=== PATIENT | male | born 1930 | race Caucasian/White ===

== ENCOUNTER → 2016-06-13 | Outpatient (CLI) | payer OTHER | LOC: CIMAGING 13:18 | PROVIDERS: ATTEND Physician Assistant | DX: R39.15 Urgency of urination (principal); N20.0 Calculus of kidney; Z85.46 Personal history of malignant neoplasm of prostate | CPT/HCPCS: 74176-PO ==

== ENCOUNTER 2016-07-02 15:14 | Emergency (ER) | payer OTHER ==
[2016-07-02 15:52] LABS: COLOR YELLOW; LEUKOCYTE ESTERASE,URINE TRACE (NEGATIVE); NITRITE,URINE NEGATIVE (NEGATIVE); PH,URINE 7.5 (5.0-7.5)
--- NOTE | 2016-07-02 15:56 | EDPHY ---
H & P Time Seen by Provider: 07/02/16 15:22 HPI/ROS: HPI Urethral pain, bladder pain. 86-year-old male by private vehicle. This patient had a cystoscopy this last by urologist Dr. Moss. He reports that since this time he has had a burning sensation in his urethra which is much worse when he urinates. He is incontinent. He does have a clamp that he uses over his penis to hold his urine. He reports that when he releases the clamp and urine flows the burning sensation is much more intense. He reports that it feels as if it radiates back into his bladder. He has not had a fever. No nausea or vomiting. No back pain. He has a complicated past medical history. Please see below. He has chronic phimosis. His urologist is currently prescribing a steroid and antibiotic ointment for this. He denies any acute worsening of this condition. ROS: Constitutional: No fever, no chills. No weakness. Eyes: No discharge. No changes in vision. ENT: No sore throat. No nasal congestion or rhinorrhea. Respiratory: No cough. No shortness of breath. Cardiac: No chest pain, no palpitations. Gastrointestinal: No abdominal pain, no vomiting, no diarrhea. Genitourinary: No hematuria. No dysuria or increased frequency with urination. Musculoskeletal: No back pain. No neck pain. No myalgias or arthralgias. Skin: No rashes. Neurological: No headache. No focal weakness or altered sensation. Past medical history: As above. Anal proctectomy, ileostomy bag, renal failure with dialysis Wednesdays and Fridays, restless leg syndrome, appendectomy. Social history: Here by himself. Nonsmoker. Physical Exam: General Appearance: Alert, no distress. This patient is responding to questions appropriately and in full sentences. This patient appears well- hydrated and well-nourished. Eyes: Pupils equal and round no pallor or injection. No lid edema, erythema or injection. Genitourinary: Chronic phimosis noted. There is some mild inflammation of the foreskin surrounding the glans. There is an appointment over this. No penile lesions. No purulent discharge. Gastrointestinal: Ileostomy, right mid abdomen intact, abdomen is soft and nontender, no masses, bowel sounds are present. No focal tenderness at McBurney 's point. No Reyes sign. Neurological: Motor sensory function is grossly intact. Cranial nerves are normal. Gait is normal. Skin: Warm and dry, no rashes. Musculoskeletal: No CVA tenderness on palpation. Extremities are symmetrical. All joints range without pain or impingement. Psychiatric: No agitation. No depression. Database: EKG: Imaging: Procedures: Emergency department course: Urine specimen obtained. Vital signs reviewed and are normal. Patient is afebrile. Patient's presentation is likely secondary to inflammation from the cystoscopy procedure itself. Will evaluate for infection and place the patient on antibiotics if needed. 4:20 p.m., patient re-evaluated. Results of urinalysis discussed with him. Urinalysis indicates probable infectious process. Plan will be to start the patient on cefuroxime, 500 mg twice daily for 7 days. He is to follow up with his urologist on Sunday for re-evaluation. It can be determined then if antibiotic should be continued. I did culture his urine and his culture results should be back by that time as well. Return to the emergency department precautions were discussed with him. He feels comfortable going home. All of his questions were answered. He understands his follow-up and treatment plan. He was discharged in good condition. Differential Diagnosis: The differential diagnosis on this patient includes but is not limited to urinary tract infection, cystitis, urethral inflammation status post cystoscopy . This represents a partial list of diagnoses considered. These considerations are based on history, physical exam, past history, reassessment and diagnostic testing. Smoking Status: Never smoked Constitutional: Initial Vital Signs Temperature (C) 36.6 C 07/02/16 15:24 Heart Rate 64 07/02/16 15:24 Respiratory Rate 16 07/02/16 15:24 Blood Pressure 108/45 L 07/02/16 15:24 O2 Sat (%) 98 07/02/16 15:24 O2 Delivery Mode Nasal Cannula O2 (L/minute) 2 Allergies/Adverse Reactions: ciprofloxacin [From Cipro] Allergy (Intermediate, Verified 07/02/16 15:28) HIGH CREATININE Penicillins Allergy (Intermediate, Verified 07/02/16 15:28) SWELLING SOLES OF FEET Home Medications: Medication Instructions Recorded Cholecalciferol Vit D3 [Vitamin D3 1,000 units PO DAILY 01/15/12 (*)] Finasteride [Proscar 5 MG (RX)] 5 mg PO 01/15/12 Flutamide 250 mg PO ,,01/15/12 Gabapentin [Neurontin 400 MG (RX)] 400 mg PO MWF@11 01/15/12 [place]-3 Fatty Acids [Fish Oil 1000 1,000 mg PO DAILY 01/15/12 mg (*)] Vitamin B Complex [Vitamin B 1 each PO DAILY 01/15/12 Complex (OTC)] rOPINIRole HCL [Requip 1mg (*)] 1 mg PO 0300 01/15/12 rOPINIRole HCL [Requip 1mg (*)] 1.5 mg PO HS 01/15/12 Buprenorphine [Butrans 20 mcg/hr] 1 each TD WE 12/17/14 Gabapentin [Neurontin] 300 mg PO HS 12/17/14 Herbals/Supplements -Info Only 1 ea PO DAILY 12/17/14 Tamsulosin HCl 0.4 mg PO DAILY@19 12/17/14 Tamsulosin HCl 0.4 mg PO HS 12/17/14 Teriparatide [Forteo] 20 mcg SC 2200 12/17/14 Vit A/Vit C/Vit E/Zinc/Copper 1 each PO BID 12/17/14 [Preservision Areds Softgel] Cefuroxime Axetil [Cefuroxime] 500 mg PO BID #14 tablet 07/02/16 Medical Decision Making - Data Points Laboratory Results: 07/02/16 15:40 Urine Color YELLOW Urine Appearance HAZY Urine pH 7.5 (5.0-7.5) Ur Specific [place] 1.020 (1.002-1.030) Urine Protein 3+ H (NEGATIVE) Urine Ketones TRACE H (NEGATIVE) Urine Blood 3+ H (NEGATIVE) Urine Nitrate NEGATIVE (NEGATIVE) Urine Bilirubin NEGATIVE (NEGATIVE) Urine Urobilinogen 0.2 EU EU (0.2-1.0) Ur Leukocyte Esterase TRACE H (NEGATIVE) Urine RBC 50-182 /hpf H /hpf (0-3) Urine WBC 5-10 /hpf H /hpf (0-3) Ur Epithelial Cells TRACE /lpf /lpf (NONE-1+) Urine Bacteria 1+ /hpf H /hpf (NONE SEEN) Urine Glucose TRACE H (NEGATIVE) Departure - Departure Disposition: Home, Routine, Self-Care Clinical Impression: Urethritis, Status post cystoscopy, Probable urinary tract infection Condition: Good Instructions: Nonspecific Urethritis in Men (ED), Urinary Tract Infection in Men (ED) Additional Instructions: Read and follow provided instructions. Follow-up with your urologist on Sunday without fail for re-evaluation. Explained to him that your urine culture results should be available at that time. Urologist can then determine whether not to keep you on the antibiotics I prescribed you or go with a different treatment. Take medication as prescribed only. Return to the emergency department for worsening pain, fever, bleeding or other serious concerns. Referrals: MICHAEL TINOCO [Primary Care Provider] - As per Instructions Prescriptions: Cefuroxime Axetil [Cefuroxime] 500 mg PO BID #14 tablet
[2016-07-02 16:07] LABS: BACTERIA 1+ /hpf (NONE SEEN); RBC,URINE 50-182 /hpf (0-3)
[2016-07-02 16:35] VITALS: BP 111/67; PULSE 68; RESP 18; TEMP 97.7; O2SAT 95
== END 2016-07-02 16:36 | disposition home or self-care (01) ==
LOC: CED 15:14
DX: N34.2 Other urethritis (principal); Z98.890 Other specified postprocedural states
CPT/HCPCS: 81003-PO; 81015-PO

== ENCOUNTER → 2016-08-17 | Outpatient (CLI) | payer OTHER | LOC: CIMAGING 14:12 | DX: H70.92 Unspecified mastoiditis, left ear (principal); H66.92 Otitis media, unspecified, left ear | CPT/HCPCS: 70480-PO ==

== ENCOUNTER 2016-08-30 12:06 | Inpatient (IN) | payer OTHER ==
--- NOTE | 2016-08-30 12:47 | EDPHY ---
H & P Stated Complaint: weak and fever decreased appetite and ambulation since 08/29 Time Seen by Provider: 08/30/16 12:11 HPI/ROS: CHIEF COMPLAINT: Fever at home, generalized weakness, history of end-stage renal disease HISTORY OF PRESENT ILLNESS: The patient presents to the ED after a 1 day history of fever at home. He reportedly had a fever to 100.8 degrees. The patient did have an episode of generalized weakness with the symptoms. The patient has end-stage renal disease. Last dialysis was on Sunday. Dialysis catheter is located in the left upper extremity. The patient has not had a history of fever, cough or vomiting. The patient reports he makes very little urine on a daily basis he estimates less than 25 mL. The patient denies any acute abdominal pain. He denies headache, rash, myalgias or recent medication changes. The patient is unable to walk secondary to his weakness. REVIEW OF SYSTEMS: A comprehensive 10 point review of systems is otherwise negative aside from elements mentioned in the history of present illness. Source: Patient, Family - Personal History Current Tetanus/Diphtheria Vaccine: Unsure Current Tetanus Diphtheria and Acellular Pertussis (TDAP): Unsure Tetanus Vaccine Date: WITHIN 10 YRS - Medical/Surgical History Hx Diabetes: No Hx Renal Disease: Yes Other PMH: Stage 5 Kidney failure. Dialysis MWF. Restless leg syndrome RLS. Prostatectomy. colectomy with illeostomy. Appy - Social History Smoking Status: Never smoked - Physical Exam Exam: General Appearance: Elderly male, no acute distress Eyes: Pupils equal and round no pallor or injection ENT, Mouth: Mucous membranes moist Respiratory: There are no retractions, rales noted on exam Cardiovascular: Regular rate and rhythm Gastrointestinal: Colostomy bag is functioning normally, normal bowel sounds, no abdominal tenderness Neurological: A&O, normal motor function, normal sensory exam, normal cranial nerves Skin: Warm and dry, no rashes Musculoskeletal: Neck is supple nontender Extremities: Dialysis catheter noted in left upper extremity without evidence of cellulitis, erythema or tenderness Constitutional: Initial Vital Signs Temperature (C) 36.7 C 08/30/16 12:15 Heart Rate 67 08/30/16 12:15 Respiratory Rate 20 08/30/16 12:15 Blood Pressure 103/43 L 08/30/16 12:15 O2 Sat (%) 97 08/30/16 12:15 O2 Delivery Mode Nasal Cannula O2 (L/minute) 2 Allergies/Adverse Reactions: ciprofloxacin [From Cipro] Allergy (Intermediate, Verified 08/30/16 12:24) HIGH CREATININE Penicillins Allergy (Intermediate, Verified 08/30/16 12:24) SWELLING SOLES OF FEET Home Medications: Medication Instructions Recorded Cholecalciferol Vit D3 [Vitamin D3 1,000 units PO DAILY 01/15/12 (*)] Finasteride [Proscar 5 MG (RX)] 5 mg PO ,01/15/12 Flutamide 250 mg PO 03,,01/15/12 Gabapentin [Neurontin 400 MG (RX)] 400 mg PO MWF@11 01/15/12 [place]-3 Fatty Acids [Fish Oil 1000 1,000 mg PO DAILY 01/15/12 mg (*)] Vitamin B Complex [Vitamin B 1 each PO DAILY 01/15/12 Complex (OTC)] rOPINIRole HCL [Requip 1mg (*)] 1 mg PO 0300 01/15/12 rOPINIRole HCL [Requip 1mg (*)] 1.5 mg PO HS 01/15/12 Buprenorphine [Butrans 20 mcg/hr] 1 each TD WE 12/17/14 Gabapentin [Neurontin] 300 mg PO HS 12/17/14 Herbals/Supplements -Info Only 1 ea PO DAILY 12/17/14 Tamsulosin HCl 0.4 mg PO DAILY@19 12/17/14 Tamsulosin HCl 0.4 mg PO HS 12/17/14 Teriparatide [Forteo] 20 mcg SC 2200 12/17/14 Vit A/Vit C/Vit E/Zinc/Copper 1 each PO BID 12/17/14 [Preservision Areds Softgel] Cefuroxime Axetil [Cefuroxime] 500 mg PO BID #14 tablet 07/02/16 Medical Decision Making - Diagnostics EKG Interpretation: EKG: Complete interpretation has been separately recorded in the [facility] archive. Summary impression: Sinus rhythm Imaging Results: Imaging Impressions Chest X-Ray 08/30/16 12:31 Impression: 1. Impending CHF versus mild fluid overloading. 2. Malpositioned double lumen venous catheter coursing up the neck. Results discussed with Dr. East. ED Course/Re-evaluation: The patient presents to the ED with fever and weakness for the past day. He has a history of end-stage renal disease. His potassium slightly elevated 5.5. He has no arrhythmia or QRS widening noted on his EKG. Chest x-ray does demonstrate pulmonary venous congestion. The patient was noted to be afebrile in the emergency department. Workup in the emergency department included blood cultures x2 and typical screening laboratories. The patient is unable to produce any urine and is fairly oligouric at baseline. The patient will require admission to the hospital in the setting of his weakness, fever, mild hyperkalemia and clinical dehydration with possible pulmonary venous congestion. Consultation was made with the hospitalist service at 1:40 p.m.. [facility]. I also paged Nephrology at 1:40 p.m. I spoke with the hospitalist at 1:45 p.m.. The patient has been accepted for inpatient hospitalization by Dr. Bah. I spoke with Dr. Jack at 2:00 p.m.. He will make arrangements for the patient to receive in-patient dialysis. Differential Diagnosis: Differential diagnosis considered includes dehydration, hyperkalemia, renal failure, pneumonia, urinary tract infection, bacteremia, sepsis, severe sepsis - Data Points Laboratory Results: Laboratory Results 08/30/16 12:40 08/30/16 12:40 08/30/16 08/30/16 08/30/16 12:40 12:40 12:40 WBC 10.18 10^3/uL H 10^3/uL (3.80-9.50) RBC 2.82 10^6/uL L 10^6/uL (4.40-6.38) Hgb 10.2 g/dL L g/dL (13.7-17.5) Hct 30.6 % L % (40.0-51.0) MCV 108.5 fL H fL (81.5-99.8) MCH 36.2 pg H pg (27.9-34.1) MCHC 33.3 g/dL g/dL (32.4-36.7) RDW 16.0 % H % (11.5-15.2) Plt Count 100 10^3/uL L 10^3/uL (150-400) MPV 10.3 fL fL (8.7-11.7) Neut % (Auto) 88.8 % H % (39.3-74.2) Lymph % (Auto) 4.6 % L % (15.0-45.0) [place] % (Auto) 5.9 % % (4.5-13.0) Eos % (Auto) 0.0 % L % (0.6-7.6) Baso % (Auto) 0.1 % L % (0.3-1.7) Nucleat RBC Rel Count 0.0 % % (0.0-0.2) Absolute Neuts (auto) 9.04 10^3/uL H 10^3/uL (1.70-6.50) Absolute Lymphs (auto) 0.47 10^3/uL L 10^3/uL (1.00-3.00) Absolute Monos (auto) 0.60 10^3/uL 10^3/uL (0.30-0.80) Absolute Eos (auto) 0.00 10^3/uL L 10^3/uL (0.03-0.40) Absolute Basos (auto) 0.01 10^3/uL L 10^3/uL (0.02-0.10) Absolute Nucleated RBC 0.00 10^3/uL 10^3/uL (0-0.01) Immature Gran % 0.6 % % (0.0-1.1) Immature Gran # 0.06 10^3/uL 10^3/uL (0.00-0.10) VBG Lactic Acid 1.2 mmol/L mmol/L (0.7-2.1) Sodium 134 mEq/L mEq/L (134-144) Potassium 5.5 mEq/L H mEq/L (3.5-5.2) Chloride 96 mEq/L L mEq/L (97-110) Carbon Dioxide 23 mEq/l mEq/l (22-31) Anion Gap 15 mEq/L mEq/L (8-16) BUN 62 mg/dL H mg/dL (7-23) Creatinine 6.8 mg/dL H mg/dL (0.7-1.3) Estimated GFR 8 Glucose 139 mg/dL H mg/dL (70-100) Calcium 8.0 mg/dL L mg/dL (8.5-10.4) Departure - Departure Disposition: Home, Routine, Self-Care Clinical Impression: Fever, Weakness, End stage renal disease, Hyperkalemia Condition: Fair Referrals: MICHAEL TINOCO [Primary Care Provider] - As per Instructions
[2016-08-30 12:59] LABS: % IMMATURE GRANULYOCYTES 0.6 % (0.0-1.1); ABSOLUTE IMMATURE GRANULOCYTES 0.06 10^3/uL (0.00-0.10); ADD DIFF? NO; ADD MORPH? NO; ADD SCAN? NO; ATYPICAL LYMPHOCYTE FLAG 0 (0-99); FRAGMENT RBC FLAG 0 (0-99); HEMATOCRIT 30.6 % (40.0-51.0); HEMOGLOBIN 10.2 g/dL (13.7-17.5); LEFT SHIFT FLG 0 (0-99); LIPEMIA HEMOLYSIS FLAG 80 (0-99); MEAN CELL HEMOGLOBIN 36.2 pg (27.9-34.1); MEAN CELL HEMOGLOBIN CONCENTR. 33.3 g/dL (32.4-36.7); MEAN CELL VOLUME 108.5 fL (81.5-99.8); MEAN PLATELET VOLUME 10.3 fL (8.7-11.7); PLATELET CLUMPS FLAG 0 (0-99); PLATELET COUNT 100 10^3/uL (150-400); RED BLOOD CELL COUNT 2.82 10^6/uL (4.40-6.38)
[2016-08-30 13:13] LABS: CREATININE 6.8 mg/dL (0.7-1.3); POTASSIUM 5.5 mEq/L (3.5-5.2)
--- NOTE | 2016-08-30 13:34 | CPEKG ---
Heart Rate: 68 RR Interval: 882 P-R Interval: 168 QRSD Interval: 82 QT Interval: 364 QTC Interval: 388 P [place]: 54 QRS [place]: 7 T Wave [place]: 15 EKG Severity - OTHERWISE NORMAL ECG - EKG Impression: SINUS RHYTHM EKG Impression: LOW VOLTAGE IN FRONTAL LEADS Electronically Signed By: Daniel East 30-Aug-2016 13:57:08
--- NOTE | 2016-08-30 15:31 | WOCRNPDOC ---
WOCRN Advanced Assessment Note - Skin Integrity Problem, Advanced Assess Bilateral Buttock Dressing Type: Open to Air Skin Integrity Problem Comment: Blanching erythema with mild moisture associated dermatitis. No need for wound care. Offload per prevention of pressure injury policy. Wound care will sign off.
[2016-08-30] MEDS ORDERED: ONDANSETRON DISINTEGRATING 4 MG TAB PO PRN (15:37)
[2016-08-30] MEDS ORDERED: NITROGLYCERIN 0.4 MG BTL SL PRN (16:18)
--- NOTE | 2016-08-30 16:46 | GHP ---
[f rep st] HISTORY AND PHYSICAL DATE OF ADMISSION: 08/30/2016 CHIEF COMPLAINT: Weakness, fever. HISTORY OF PRESENT ILLNESS: An 86-year-old male with a history of end-stage renal disease, on dialysis, CAD, ulcerative colitis, and a history of prostate cancer, presented to [facility] with a fever to 100.8 and generalized weakness. This started yesterday. He said he has been so weak in the legs for the last 2 days that he has not really been able to ambulate. Complaining of pain in his hips. He is very tired and has complained of chills. No nausea, vomiting. No increased stool in his colostomy. Denies flank pain. He makes a small amount of urine still. Intermittent headache, but none recently. No rash. Last dialysis was on Sunday. The patient has had decreased p.o. intake over the last couple days. REVIEW OF SYSTEMS: I completed a 10-point review of systems, negative, except as noted in HPI. PAST MEDICAL HISTORY: 1. Restless legs syndrome. 2. End-stage renal disease, on dialysis Sunday, Sunday, Sunday. 3. Ulcerative colitis, status post proctocolectomy with end ileostomy. 4. Osteoporosis. 5. Kidney stones. 6. Recurrent UTIs. History of Proteus and E coli. 7. Ureter stricture, followed by [facility]. History of UTIs. 8. Prostate cancer, status post radical prostatectomy. 9. Macular degeneration. 10. Chronic hypoxemic respiratory failure, on 2 L: Patient is followed by Dr. Tracy with relatively normal PFTs. Suspect multifactorial due to age, deconditioning and severe kyphosis. 11. Phimosis seen recently by Urology. Plan for dorsal slit. 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 PAST SURGICAL HISTORY: Proctocolectomy with end ileostomy, colectomy; kyphoplasty, T2014; cholecystectomy. FAMILY HISTORY: Brother with diabetes. SOCIAL HISTORY: He lives with his in [place]. They have been 64 years. Denies alcohol, tobacco or illicits. ALLERGIES: Cipro, penicillins. HOME MEDICATIONS: Requip 1.5 mg q.h.s., 1 mg 3 a.m.; vitamin B complex; Forteo ; Flomax; omega-3 herbal supplement; gabapentin 300 mg q.h.s., 400 mg Sunday, Sunday, Sunday at 11; flutamide 250 mg p.o. t.i.d.; finasteride; vitamin D3; cefuroxime 500 mg b.i.d.; and Butrans. PHYSICAL EXAMINATION: VITAL SIGNS: Temperature 37.4, blood pressure 100/44, heart rate 70s, respiration rate 18, 95% on 2 L. GENERAL: Fatigued, pale, shivering. HEENT: PERRLA. Dry mucous membranes. CV: Regular rate and rhythm. No murmurs, gallops, or rubs. LUNGS: Crackles, left base. ABDOMEN: Soft, nontender, nondistended. Colostomy in place. No tenderness. No suprapubic or CVA tenderness. MUSCULOSKELETAL: Moving all 4 extremities. NEURO: 2 through 12 intact. PSYCH: Alert and oriented x3, but tired, falling asleep during interview. SKIN: Warm, dry, no lesions. Does have mild erythema over the coccyx, but blanches. LABS: WBC is 10, hemoglobin 10, hematocrit 30, platelets 100. Lactate is 1.2. Sodium 134, potassium 5.5, chloride 96, carbon dioxide 23, BUN 62, creatinine 6.8 (last 4.4), glucose 139. Calcium is 8. Chest x-ray is personally reviewed by me: Blunting of left costophrenic angle, mild edema. No overt opacity EKG personally reviewed by me. Normal sinus rhythm, low voltage frontal leads. No ST elevation or depression. ASSESSMENT AND PLAN: 1. Weakness: concern for UTI. Low-grade temperature at home of 100.8. h/o UTI with Klebs, E Coli (pansensitive) and Proteus. Positive UA, cultures pending. IV CTX (h/o PCN-allery just feet swelling per patient). Has ureter stricture. Was treated end of June with ceph for UTI via ER visit. Check stool for Clostridium difficile. Does not have great story for PNA and CXR with mild edema. Procalcitonin pending. Lactate normal. 2. Acute encephalopathy: suspect due to infection. No metabolic derangements. Hold gabapentin 3. Hyperkalemia: no EKG changes. Spoke with Dr. Jack. Plan for HD tomorrow. 4. End-stage renal disease, on dialysis, last on Sunday. 5. Fever: Reported by patient. Again, will evaluate for urinary tract infection, Clostridium difficile. Blood cultures are pending. 6. Restless leg syndrome. Requip. 7. Coronary artery disease. Continue home medications. 8. Hyperkalemia: Secondary to end-stage renal disease. No EKG changes. No PT , T-waves. 9. History of ulcerative colitis, status post proctocolectomy and ileostomy. 10. Chronic hypoxemic resp failure: followed by Dr. Tracy. Due to kyphosis, relatively normal PFTs. Mild edema on CXR 11. History of prostate cancer. Resume home medications. 12. Chronic pain. Continue Butrans patch, along with gabapentin. 13. Deep venous thrombosis prophylaxis. Subcu heparin. 14. Diet: Renal. 15. Deconditioning: PT, OT evaluation. 16. Code status: DNR. I had a conversation with patient today. 17. Disposition: Patient warrants inpatient admission given acute weakness, placing him at risk for fall and subsequent injury and evaluation for infection. /[id number]/MODL [email or web address]
[2016-08-30 17:20] LABS: COLOR AMBER; LEUKOCYTE ESTERASE,URINE 2+ (NEGATIVE); NITRITE,URINE NEGATIVE (NEGATIVE)
[2016-08-30] MEDS: PRESERVISION AREDS2 FORMULA EYE VIT 1 EACH PO SCH (17:24)
[2016-08-30 17:25] LABS: BACTERIA 2+ /hpf (NONE SEEN); MUCUS TRACE /lpf (NONE-1+); RBC,URINE 50-182 /hpf (0-3); WBC,URINE 50-182 /hpf (0-3)
[2016-08-30 19:51] LABS: BILIRUBIN,TOTAL 0.8 mg/dL (0.1-1.4); TOTAL PROTEIN 6.4 g/dL (6.3-8.2)
[2016-08-30] MEDS ORDERED: TRIAMCINOLONE 0.1% TP SCH (21:00)
[2016-08-30] MEDS ORDERED: ROPINIROLE HCL PO SCH (21:00)
[2016-08-30] MEDS ORDERED: NON-FORMULARY NEW DRUG (Vit A/Vit C/Vit E/Zinc/Copper [Preservision Areds Softgel] 1 EACH) PO SCH (21:00)
[2016-08-30] MEDS: TRIAMCINOLONE 0.1% 15GM OINT TP SCH (21:14)
[2016-08-30] MEDS: PRAVASTATIN SODIUM 20 MG TAB PO SCH (21:28)
[2016-08-30] MEDS: HEPARIN 5,000 UNIT/0.5 ML SYR SC SCH (21:29)
[2016-08-30] MEDS: FLUTAMIDE 125 MG PO SCH (21:55)
--- NOTE | 2016-08-30 21:58 | SOAPPROG ---
HARVINDER Progress Note Assessment/Plan: Assessment:Plan: Consult Dictated ESRD-regular Hd MWF at [facility] -patient missed his scheduled treatment today -Plan for Hd first thing tomorrow Access pulsatile, but compressible -follow CV-BP typically runs low per patient -currently BP is similar to past admissions -CXR suggestive of mild volume overload -would hold off on IVF ID-history of recurrent UTI's -cultured -leukocytosis -hematuria and pyuria -on empiric abx 08/30/16 21:58 Objective: Vital Signs Temp Pulse Resp BP Pulse Ox 37.6 C 69 16 104/40 L 90 L 08/30/16 20:20 08/30/16 20:20 08/30/16 20:20 08/30/16 20:20 08/30/16 20:20 08/29/16 08/30/16 08/31/16 05:59 05:59 05:59 Intake Total 100 Output Total 25 Balance 75 ICD10 Worksheet Patient Problems: Problems Problem Status Onset End stage renal disease Acute Fever Acute Hyperkalemia Acute Weakness Acute Acute renal failure syndrome Active Anemia Active Kidney disease Active
[2016-08-30] MEDS ORDERED: Teriparatide [Forteo] SQ SCH (22:00)
[2016-08-30] MEDS: oxyCODONE IR 5 MG TAB PO PRN (22:04)
[2016-08-30 22:29] LABS: BILIRUBIN-CONJUGATED 0.8 mg/dL (0.0-0.5)
--- NOTE | 2016-08-30 23:38 | GCON ---
[f rep st] CONSULTATION NEPHROLOGY CONSULTATION. DATE OF CONSULTATION: 08/30/2016 REASON FOR CONSULTATION: End-stage renal disease, in need of dialysis. CHIEF COMPLAINT: Reason for admission: Fever. ASSESSMENT: 1. End-stage renal disease, in need of dialysis. Plan for dialysis tomorrow morning. Avoid IVs and blood pressures in the patient's left arm due to the presence of an AV fistula on that side. 2. Fever. The patient has history of recurrent UTIs. He now has leukocytosis along with hematuria and pyuria. He has been cultured. He has been started on empiric antibiotics. I suspect he has another urinary tract infection. 3. Cardiovascular, he has blood pressure on the low side of the normal range. After a review of old records, this is consistent with where he typically runs. His chest x-ray shows mild volume overload. I would hold off on administration of IV fluids. 4. Consent was obtained for dialysis. The patient is scheduled for dialysis first thing tomorrow morning. HISTORY OF PRESENT ILLNESS: Patient is an 86-year-old white male, admitted to the Emergency Room with fever. He had generalized weakness. Temperature was as high as 100.8 at home. The patient had uneventful dialysis on Sunday. Due to the symptoms he experienced at home he came to the Emergency Room instead of going to dialysis. In the Emergency Room he was afebrile with a heart rate of 67, and blood pressures that were 103/43. He had a chest x-ray which showed impending CHF versus mild fluid overload. He was cultured and placed on empiric antibiotics. He was admitted to the floor for further evaluation and treatment. I was called by Dr. Daniel East to help with his end-stage renal disease management. The patient is a somewhat poor historian. He states he has been on dialysis for about 6 months. In reality, he has been on dialysis since June 2013. He dialyzes Sunday, Sunday, Sunday at the [facility] under the care of Dr. Leigh. He was originally seen by Dr. Berrios in 2011 for acute kidney injury. Biopsy at that time demonstrated both Acute tubular necrosis and Allergic Interstitial Nephritis. He underwent a course of prednisone therapy. In spite of that he progressed to ESRD. He had an AVF placed by Dr. Villa on 06/27/2013 and had a tunneled catheter place as well. He began dialysis at that time. PAST MEDICAL HISTORY: He had ulcerative colitis for 20 years. 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 At this time he retired. His other prior medical history is for prostate cancer, acute kidney injury, spinal abscess, chronic kidney disease, restless legs syndrome, macular degeneration, degenerative joint disease, osteoporosis, gastroesophageal reflux disease, steal syndrome, kidney stones, and recurrent urinary tract infections. PAST SURGICAL HISTORY: He has had kyphoplasty in 2014 after vertebral fracture. He had a radical prostatectomy in 1990. Other surgical history is for cholecystectomy, bladder biopsy and vasectomy. He had AV fistula construction 06/27/2013 and he has had tunneled dialysis catheter placement and removal. He has had history of ureteral stricture requiring stent placement and removal. He has been followed by Urology. He has chronic hypoxia on nasal cannula oxygen. Proctocolectomy 1972 with ileostomy as previously described for his ulcerative colitis. MEDICATIONS: Home medications include Requip 1.5 mg at bedtime with another 1 mg in 3 o'clock in the morning. He takes vitamin B complex, Forteo, Flomax, omega-3 fatty acids, gabapentin 300 mg at bedtime and 400 mg during the day Sunday, Sunday, Sunday. He takes flutamide 250 mg 3 times daily, finasteride , vitamin D3, cefuroxime 500 mg twice daily, and Butrans. ALLERGIES: Cipro and penicillins. SOCIAL HISTORY: He is retired. 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 He states he retired in 1972. He is . He has 3 children, 2 sons and 1 daughter. Denies alcohol, tobacco or drug use. FAMILY HISTORY: Remarkable for brother and sister with diabetes. Father of pancreatic cancer and mother of stroke. Sister with brain aneurysm. Other family history positive for CAD.. REVIEW OF SYSTEMS: Limited, but the patient describes having fevers, weakness and chills. PHYSICAL EXAMINATION: GENERAL: He is an elderly white male, sitting up in bed , wearing nasal cannula oxygen. Bilateral hearing aids. Vital Signs: He is afebrile with a temperature 37.4, pulse is 70, respirations are 18. Blood pressure is 100/44. On review of old records, his blood pressure typically runs in the low 100s. Skin: Pale and warm. He is not diaphoretic. Moving all extremities. Relatively poor historian. Speech is clear. HEENT: Atraumatic, normocephalic. Neck: Unremarkable. Heart: Regular with a 2/6 systolic murmur. Lungs: With decreased breath sounds at the bases. Left upper arm AV fistula is unremarkable. Abdomen: Exam is remarkable for right lower quadrant ileostomy with ostomy bag present. He is soft and nontender. No obvious rebound or guarding. Extremities: Free of edema. LABORATORY DATA: Potassium of 5.5. White blood cell count is 10,000 hematocrit 30. He has 88% neutrophils present. Anion gap 15, lactic acid level 1.2. Procalcitonin elevated at 4. Urinalysis with hematuria and pyuria. ASSESSMENT/PLAN : End-stage renal disease with probable recurrent urinary tract infection, now admitted for further evaluation and treatment. He is getting empiric IV antibiotics. It looks like he was on cephalosporin as an outpatient. He has been cultured. He is getting empiric ceftriaxone currently. Although he is not febrile he certainly feels warm. He will need to be followed closely due to his comorbid conditions and advanced age. He could have a resistant organism. We will plan on having him get his dialysis first thing in the morning. Given his chest x-ray appearance, will avoid giving any IV fluids in spite of his blood pressure being a little bit on the low side. This does appear to be within his normal range. We will plan on not removing any fluid with dialysis and follow him clinically. His dialysis fistula is somewhat pulsatile. The patient states that his fistula feels normal to him. The vein is collapsible. We will follow that clinically as well to determine whether he has any reason to warrant getting a fistulogram. /[id number]/MODL MTDD
[2016-08-31] MEDS ORDERED: ROPINIROLE HCL 1 MG PO SCH (02:00)
[2016-08-31] MEDS: FLUTAMIDE 125 MG PO SCH ×3 (02:37→18:13)
[2016-08-31 05:11] LABS: HEMATOCRIT 29.9 % (40.0-51.0); HEMOGLOBIN 9.9 g/dL (13.7-17.5); MEAN CELL HEMOGLOBIN 35.6 pg (27.9-34.1); MEAN CELL HEMOGLOBIN CONCENTR. 33.1 g/dL (32.4-36.7); MEAN CELL VOLUME 107.6 fL (81.5-99.8); RED BLOOD CELL COUNT 2.78 10^6/uL (4.40-6.38); RED CELL DISTRIBUTION WIDTH 15.3 % (11.5-15.2)
[2016-08-31 05:30] LABS: ALBUMIN 3.2 g/dL (3.5-5.0); ANION GAP 14 mEq/L (8-16); CALCIUM 8.1 mg/dL (8.5-10.4); CARBON DIOXIDE 19 mEq/l (22-31); CHLORIDE 99 mEq/L (97-110); GLOMERULAR FILTRATION RATE 6; GLUCOSE 106 mg/dL (70-100); POTASSIUM 5.9 mEq/L (3.5-5.2); SODIUM 132 mEq/L (134-144)
[2016-08-31] MEDS: HEPARIN 5,000 UNIT/0.5 ML SYR SC SCH ×3 (05:32→21:18)
[2016-08-31 05:36] LABS: CREATININE 8.3 mg/dL (0.7-1.3)
--- NOTE | 2016-08-31 08:41 | HOSPPROG ---
Hospitalist Progress Note Assessment/Plan: Patient is an 86-year-old male with history of end-stage renal disease, coronary artery disease, and ulcerative colitis who presented to the emergency room with a fever and generalized weakness. Today is my 1st encounter with him. Blood cultures reveal gram-negative rods. * bacteremia/suspect this is a urinary source On ceftriaxone spoke with Dr Diamond and he will see Neri * end-stage renal disease Dialysis on Wednesdays and Fridays Nephrology is aware he is admitted * hyperkalemia Dialysis today *anemia from chronic kidney disease *Acute encephalopathy likely due to all the above, multifactorial not sure of her baseline, answers questions overall appropriately *+c diff noted on GI panel place on precautions add oral vancomycin has an ostomy in place/loose stools *CAD resume home meds *chronic pain Butrans patch *prostate cancer Flutamide *DVT prophylaxis: LMWH *Plan: continue current care/ start oral vanco, ID to see, continue Ceftriaxone Subjective: Neri says his whole trunk hurts. Objective: Vital Signs Temp Pulse Resp BP Pulse Ox 36.6 C 68 16 102/39 L 89 L 08/31/16 07:37 08/31/16 07:37 08/31/16 07:37 08/31/16 07:37 08/31/16 07:37 Laboratory Results 08/31/16 04:34 08/31/16 04:34 08/30/16 08/31/16 09/01/16 05:59 05:59 05:59 Intake Total 350 Output Total 425 Balance -75 - Physical Exam Constitutional: chronically ill appearing, uncomfortable Eyes: PERRL Ears, Nose, Mouth, Throat: hard of hearing Cardiovascular: regular rate and rhythym Respiratory: no respiratory distress, reduced air movement Skin: warm, No normal color (pale) Musculoskeletal: generalized weakness Neurologic: other (alert, but drowsy) Psychiatric: interacting appropriately ICD10 Worksheet Patient Problems: Problems Problem Status Onset End stage renal disease Acute Fever Acute Hyperkalemia Acute Weakness Acute Acute renal failure syndrome Active Anemia Active Kidney disease Active
--- NOTE | 2016-08-31 08:59 | SOAPPROG ---
SOAP Progress Note Assessment/Plan: Assessment: 1. ESRD. HD today to catch up from missing yesterday. Will dialyze again tomorrow to get back on MWF schedule. 2. Bacteremia. E. Coli, most likely urinary source, sens and ur cx, pending. Continue ceftriaxone. Await sens. If not clearing, image kidneys to r/o obstruction, etc. 3. Hypotension. DW 115 kg, at 114.6 today. Can bolus NS 250 cc if BP < 90. Says BP normally runs 90-low 100s at dialysis. 4. AVF. Pulsatile on exam yesterday. Running well today. Will not order f-gram at this point. 5. Hyperkalemia. Dialysis this am. Plan: 08/31/16 08:55 08/31/16 08:55 08/31/16 09:01 Subjective: Seen and examined on dialysis. Still feels very weak, not better yet. Objective: Vital Signs Temp Pulse Resp BP Pulse Ox 36.6 C 68 16 102/39 L 89 L 08/31/16 07:37 08/31/16 07:37 08/31/16 07:37 08/31/16 07:37 08/31/16 07:37 Laboratory Results 08/31/16 04:34 08/31/16 04:34 08/30/16 08/31/16 09/01/16 05:59 05:59 05:59 Intake Total 350 Output Total 425 Balance -75 On dialysis Qb 350, Communication Coordinator 190 L AVF cannulated RRR, no m/g/r Oral mucosa dry CTAB Abdom soft, nt No edema +skin tenting on hands ICD10 Worksheet Patient Problems: Problems Problem Status Onset Kidney disease Active Anemia Active Acute renal failure syndrome Active Fever Acute Weakness Acute End stage renal disease Acute Hyperkalemia Acute
[2016-08-31] MEDS ORDERED: Herbals/Supplements -Info Only PO SCH (09:00)
[2016-08-31] MEDS: VITAMIN B COMPLEX 1 EA CAP/TAB PO SCH (12:52)
[2016-08-31] MEDS: OMEGA-3 FATTY ACIDS 1,000 MG CAP PO SCH (12:52)
[2016-08-31] MEDS: CHOLECALCIFEROL VIT D3 1,000 UNITS TAB PO SCH (12:53)
[2016-08-31] MEDS: ASPIRIN 81 MG CHEWABLE TAB PO SCH (12:53)
[2016-08-31] MEDS: PANTOPRAZOLE SODIUM 40 MG TAB PO SCH (12:54)
[2016-08-31] MEDS: CLOPIDOGREL BISULFATE 75 MG TAB PO SCH (12:55)
[2016-08-31] MEDS: PRESERVISION AREDS2 FORMULA EYE VIT 1 EACH PO SCH ×2 (12:55→18:13)
[2016-08-31] MEDS: TRIAMCINOLONE 0.1% 15GM OINT TP SCH ×2 (13:02→21:21)
[2016-08-31] MEDS: VANCOMYCIN 125 MG/2.5 ML UDL PO SCH ×2 (15:39→21:20)
[2016-08-31] MEDS: ACETAMINOPHEN 325 MG TAB PO PRN (16:18)
--- NOTE | 2016-08-31 19:17 | GCON ---
[f rep st] CONSULTATION INPATIENT INFECTIOUS DISEASE CONSULTATION DATE OF CONSULTATION: 08/31/2016 REFERRING PHYSICIAN: Cinthia Harvey NP REASON FOR CONSULTATION: E. coli bacteremia. HISTORY OF PRESENT ILLNESS: The patient is an 86-year-old male with history of end-stage renal dise ase, on hemodialysis for the last 6 months. He presented to the emergency room with fever and weakn ess. The patient has positive blood culture showing E coli. He still makes urine, but less than 50 cc a day. Currently, he is resting in his hospital bed. He is having a small amount of rigors. H e does not feel well. He is being covered with ceftriaxone. PAST MEDICAL HISTORY: 1. End-stage renal disease, on hemodialysis. 2. Ulcerative colitis, status post proctocolectomy and end ileostomy. 3. Osteoporosis. 4. Nephrolithiasis. 5. Recurrent UTIs. 6. History of ureteral stricture. 7. History of prostate cancer. 8. Restless legs syndrome. PAST SURGICAL HISTORY: 1. Status post proctocolitis tummy and end ileostomy. 2. Status post kyphoplasty. 3. Status post cholecystectomy. MEDICATIONS: Antibiotics: Ceftriaxone. ALLERGIES: The patient is allergic to Cipro and penicillins. SOCIAL HISTORY: The patient is and lives with his in [place]. No alcohol, tobacco, or drug use noted. FAMILY HISTORY: Reviewed, but not contributory. REVIEW OF SYSTEMS: Other than that detailed above in the history of present illness, a comprehensiv e 10-system review is negative. PHYSICAL EXAMINATION: VITAL SIGNS: Temperature maximum is 38.3, temperature current is 36.6, heart rate is 62, respiratory rate is 16, blood pressure is 97/42. GENERAL: The patient is a well-forme d, well-nourished, elderly male in mild distress. He is mildly toxic in appearance. He is alert an d oriented x3. He is pleasant in demeanor. HEENT: Normocephalic for age. Atraumatic. No scleral icterus. No oral lesion or drainage from the nares. Eyes lids and conjunctivae are within normal limits. Pupils are equal and round bilaterally. NECK: Supple. No meningismus. LUNGS: Clear to auscultation bilaterally with good effort. HEART: Regular rate and rhythm. No murmur, rub, or gal lop noted. No significant peripheral edema. ABDOMEN: Soft, nontender. Ostomy is healthy appearin g. No other rash or lesion noted. No masses. SKIN: Warm and dry to the touch. No rash or lesion . MUSCULOSKELETAL: No muscle belly tenderness is noted. No joint enlargement, effusion, or arthri tis is seen. NEURO: Cranial nerves 2-12 seem to be intact. Peripheral sensation seems intact in e xtremities. LABORATORY DATA: The patient has a CBC dated 08/31/2016, shows a white blood cell count of 8.6, hem oglobin 9.9, hematocrit of 29.9, platelet count of 87. Serum chemistries on 08/31 show sodium 132, potassium 5.9, chloride of 99, bicarbonate of 19, BUN of 83, and creatinine of 8.3. Urinalysis on 08/30/2016 shows 50-182 red blood cells and white blood cells, 2+ bacteria. MICROBIOLOGIC DATA: The patient has blood culture dated 08/30/2016, which is growing E. coli. Urin e culture from 08/30/2016 is growing a gram negative evonne lactose sql consultant. Stool test from 08/31 P CR reflects C difficile. ASSESSMENT: 1. Escherichia coli bacteremia possibly from a urinary source. His historic E. coli isolates have been hdz susceptible. We will continue ceftriaxone at this point in time. We will await sensitivit y panel. 2. Clostridium difficile toxin positive. Clearly using broad-spectrum gram-negative coverage will increase his chance for developing C difficile colitis. We will place the patient on oral vancomyci n 125 mg p.o. four times daily for a 7-day course. Monitor diarrhea. PLAN: 1. Continue ceftriaxone. 2. Await sensitivity panel for the E. coli in the blood. 3. Start vancomycin 125 mg p.o. four times daily. 4. Follow up blood cultures. /[id number]/MODL
[2016-08-31] MEDS: oxyCODONE IR 5 MG TAB PO PRN (21:20)
[2016-08-31] MEDS: PRAVASTATIN SODIUM 20 MG TAB PO SCH (21:21)
[2016-08-31] MEDS: Teriparatide [Forteo] SQ SCH (21:41)
[2016-09-01] MEDS: FLUTAMIDE 125 MG PO SCH ×3 (03:15→20:21)
[2016-09-01] MEDS: ACETAMINOPHEN 325 MG TAB PO PRN ×3 (03:54→17:11)
[2016-09-01 04:49] LABS: % IMMATURE GRANULYOCYTES 0.5 % (0.0-1.1); ABSOLUTE IMMATURE GRANULOCYTES 0.03 10^3/uL (0.00-0.10); ADD DIFF? NO; ADD MORPH? NO; ADD SCAN? NO; ATYPICAL LYMPHOCYTE FLAG 0 (0-99); FRAGMENT RBC FLAG 0 (0-99); HEMATOCRIT 28.7 % (40.0-51.0); HEMOGLOBIN 9.7 g/dL (13.7-17.5); LEFT SHIFT FLG 10 (0-99); LIPEMIA HEMOLYSIS FLAG 90 (0-99); MEAN CELL HEMOGLOBIN 35.7 pg (27.9-34.1); MEAN CELL HEMOGLOBIN CONCENTR. 33.8 g/dL (32.4-36.7); MEAN CELL VOLUME 105.5 fL (81.5-99.8); MEAN PLATELET VOLUME 11.4 fL (8.7-11.7); PLATELET CLUMPS FLAG 0 (0-99); PLATELET COUNT 102 10^3/uL (150-400); RED BLOOD CELL COUNT 2.72 10^6/uL (4.40-6.38); RED CELL DISTRIBUTION WIDTH 15.6 % (11.5-15.2)
[2016-09-01 05:49] LABS: ALBUMIN 2.6 g/dL (3.5-5.0); ANION GAP 12 mEq/L (8-16); CARBON DIOXIDE 24 mEq/l (22-31); CHLORIDE 96 mEq/L (97-110); CREATININE 5.3 mg/dL (0.7-1.3); GLOMERULAR FILTRATION RATE 10; GLUCOSE 98 mg/dL (70-100); POTASSIUM 4.8 mEq/L (3.5-5.2); SODIUM 132 mEq/L (134-144)
[2016-09-01] MEDS: VANCOMYCIN 125 MG/2.5 ML UDL PO SCH ×4 (06:23→20:23)
[2016-09-01] MEDS: HEPARIN 5,000 UNIT/0.5 ML SYR SC SCH ×3 (06:23→22:27)
[2016-09-01] MEDS: VITAMIN B COMPLEX 1 EA CAP/TAB PO SCH (07:53)
[2016-09-01] MEDS: PRESERVISION AREDS2 FORMULA EYE VIT 1 EACH PO SCH ×2 (07:53→17:11)
[2016-09-01] MEDS: PANTOPRAZOLE SODIUM 40 MG TAB PO SCH (07:53)
[2016-09-01] MEDS: ASPIRIN 81 MG CHEWABLE TAB PO SCH (07:53)
[2016-09-01] MEDS: CLOPIDOGREL BISULFATE 75 MG TAB PO SCH (07:53)
[2016-09-01] MEDS: OMEGA-3 FATTY ACIDS 1,000 MG CAP PO SCH (07:53)
[2016-09-01] MEDS: CHOLECALCIFEROL VIT D3 1,000 UNITS TAB PO SCH (07:53)
[2016-09-01] MEDS: TRIAMCINOLONE 0.1% 15GM OINT TP SCH ×2 (07:56→20:24)
[2016-09-01] MEDS ORDERED: NS 100 ML IV SCH (08:00)
[2016-09-01] MEDS ORDERED: EPOETIN ALFA 10,000 UNIT/ML VIAL SC SCH (08:30)
--- NOTE | 2016-09-01 09:44 | SOAPPROG ---
HARVINDER Progress Note Assessment/Plan: Assessment:Plan: Consult Dictated ESRD-regular Hd MWF at [facility] -patient missed his scheduled treatment Sunday -had Hd yesterday -Plan for Hd today Access pulsatile, but compressible -follow CV-BP typically runs low per patient -currently BP is similar to past admissions -CXR suggestive of mild volume overload -would hold off on IVF -UF as tolerated with dialysis ID-history of recurrent UTI's -cultured -E coli -leukocytosis better -sensisitivities -on empiric abx C. diff-hard to know what this means in the setting of ileostomy 09/01/16 09:41 Subjective: feeling better, up in chair Objective: Vital Signs Temp Pulse Resp BP Pulse Ox 36.7 C 59 L 16 89/44 L 96 09/01/16 07:26 09/01/16 07:26 09/01/16 07:26 09/01/16 08:05 09/01/16 07:26 Microbiology 08/30/16 16:50 Urine Culture - Final Urine,Catheterized Escherichia Coli 08/31/16 12:35 Gastrointestinal Tract Panel (PCR) - Final Stool Clostridium Difficile Detected Laboratory Results 09/01/16 04:35 09/01/16 04:35 08/31/16 09/01/16 09/02/16 05:59 05:59 05:59 Intake Total 350 400 Output Total 425 250 Balance -75 150 Physical Exam - Physical Exam General Appearance: WD/WN, alert, no apparent distress, thin EENT: normal ENT inspection Neck: normal inspection Respiratory: decreased breath sounds (1/[address]), rales Cardiac/Chest: regular rate, rhythm, systolic murmur Abdomen: normal bowel sounds, non-tender, other (ileostomy) Extremities: other (patent AVF), No swelling ICD10 Worksheet Patient Problems: Problems Problem Status Onset C. difficile diarrhea Acute ~08/31/16 End stage renal disease Acute Fever Acute Hyperkalemia Acute Weakness Acute Acute renal failure syndrome Active Anemia Active Kidney disease Active
--- NOTE | 2016-09-01 09:58 | HOSPPROG ---
Hospitalist Progress Note Assessment/Plan: Patient is an 86-year-old male with history of end-stage renal disease, coronary artery disease, and ulcerative colitis, s/p colectomy > 20 year [employer], who presented to the emergency room with a fever and generalized weakness. Patient new to me today. Blood cultures reveal gram-negative rods. -bacteremia/suspect this is a urinary source; patient afebrile and feeling improved On ceftriaxone will change antibiotic to Ancef following dialysis. That will avoid the need of a PICC line. -end-stage renal disease Dialysis on Wednesdays and Fridays Nephrology is aware he is admitted -hyperkalemia: resolved with dialysis -anemia from chronic kidney disease; stable -Acute encephalopathy; improved and resolved. patient alert, calm, responsive. -+c diff noted on GI panel place on precautions add oral vancomycin has an ostomy in place/loose stools -CAD resume home meds -SPCM: dietary consult -chronic pain Butrans patch -prostate cancer Flutamide -DVT prophylaxis: LMWH -Plan: continue current care/ start oral vanco, ID to see, continue Ceftriaxone Subjective: No complaints says he feels improved Objective: Vital Signs Temp Pulse Resp BP Pulse Ox 36.7 C 59 L 16 89/44 L 96 09/01/16 07:26 09/01/16 07:26 09/01/16 07:26 09/01/16 08:05 09/01/16 07:26 Microbiology 08/30/16 16:50 Urine Culture - Final Urine,Catheterized Escherichia Coli 08/31/16 12:35 Gastrointestinal Tract Panel (PCR) - Final Stool Clostridium Difficile Detected Laboratory Results 09/01/16 04:35 09/01/16 04:35 08/31/16 09/01/16 09/02/16 05:59 05:59 05:59 Intake Total 350 400 Output Total 425 250 Balance -75 150 - Time Spent With Patient Time Spent with Patient: greater than 35 minutes Time Spent with Patient: Greater than 35 minutes spent on this patients care, greater than 50% of time spent counseling, educating, and coordinating care regarding the above mentioned plan. - Pending Discharge Pending Discharge Within 24 Hours: Yes Pending Discharge Date: 09/02/16 Pending Discharge Time: 11:00 - Physical Exam Constitutional: no apparent distress Eyes: PERRL Ears, Nose, Mouth, Throat: moist mucous membranes Cardiovascular: regular rate and rhythym, systolic murmur Respiratory: no respiratory distress, no rales or rhonchi, clear to auscultation Gastrointestinal: normoactive bowel sounds Skin: warm Musculoskeletal: generalized weakness Neurologic: AAOx3, CN II-XII Intact ICD10 Worksheet Patient Problems: Problems Problem Status Onset C. difficile diarrhea Acute ~08/31/16 Kidney disease Active Anemia Active Acute renal failure syndrome Active Fever Acute Weakness Acute End stage renal disease Acute Hyperkalemia Acute
--- NOTE | 2016-09-01 11:08 | PCMIDPN ---
Assessment/Plan: Assessment/Plan: * E coli bacteremia likely of urinary etiology: Clinically improved with antibiotic therapy. Will repeat blood cultures today to assess for clearing of bacteremia. Will change antibiotic therapy to Ancef 2 g after each dialysis to complete therapy based on susceptibility profile. This will preclude need for PICC line for continued IV antibiotic treatment. * Positive C difficile toxin by PCR: Suspect this more likely represents colonization than active disease given lack of significant diarrhea. Continue oral vancomycin while on broad-spectrum antibiotic therapy however as at risk for developing colitis. 09/01/16 11:05 Subjective: Patient feels much better. Patient notes that he was having dysuria and frequency prior to admission. No significant consistent change in ostomy output. Objective: Vital Signs Temp Pulse Resp BP Pulse Ox 36.7 C 59 L 16 89/44 L 96 09/01/16 07:26 09/01/16 07:26 09/01/16 07:26 09/01/16 08:05 09/01/16 07:26 Microbiology 08/30/16 16:50 Urine Culture - Final Urine,Catheterized Escherichia Coli 08/31/16 12:35 Gastrointestinal Tract Panel (PCR) - Final Stool Clostridium Difficile Detected Laboratory Results 09/01/16 04:35 09/01/16 04:35 08/31/16 09/01/16 09/02/16 05:59 05:59 05:59 Intake Total 350 400 Output Total 425 250 Balance -75 150 Ceftriaxone # 3 Blood cultures and urine cultures with growth of E coli; hdz susceptible isolate by urine culture results - Physical Exam General Appearance: alert, no apparent distress EENT: No scleral icterus, No thrush Respiratory: lungs clear, No respiratory distress Cardiac/Chest: regular rate, rhythm Extremities: other (Dialysis access in left upper extremity with good thrill and no overlying erythema or tenderness) Abdomen: non-tender, other (Soft stool in ostomy), No distended Back: No CVA tenderness ICD10 Worksheet Patient Problems: Problems Problem Status Onset C. difficile diarrhea Acute ~08/31/16 End stage renal disease Acute Fever Acute Hyperkalemia Acute Weakness Acute Acute renal failure syndrome Active Anemia Active Kidney disease Active
[2016-09-01] MEDS: oxyCODONE IR 5 MG TAB PO PRN (15:11)
[2016-09-01] MEDS ORDERED: oxyCODONE IR 5 MG TAB PO PRN (15:29)
[2016-09-01] MEDS: ONDANSETRON 4 MG/2 ML VIAL IVP PRN ×2 (17:51→22:27)
[2016-09-01] MEDS ORDERED: METHOCARBAMOL 750 MG TAB PO PRN (18:03)
[2016-09-01] MEDS: PRAVASTATIN SODIUM 20 MG TAB PO SCH (20:21)
[2016-09-01] MEDS: Teriparatide [Forteo] SQ SCH (22:24)
[2016-09-01] MEDS ORDERED: NS 250 ML IV ONE (22:43)
[2016-09-01 23:36] VITALS: O2SAT 95
[2016-09-02] MEDS: FLUTAMIDE 125 MG PO SCH ×2 (02:30→10:52)
[2016-09-02] MEDS: VANCOMYCIN 125 MG/2.5 ML UDL PO SCH ×2 (05:01→10:53)
[2016-09-02] MEDS: HEPARIN 5,000 UNIT/0.5 ML SYR SC SCH (05:02)
[2016-09-02 05:27] LABS: % IMMATURE GRANULYOCYTES 0.4 % (0.0-1.1); ABSOLUTE IMMATURE GRANULOCYTES 0.02 10^3/uL (0.00-0.10); ADD DIFF? NO; ADD MORPH? NO; ADD SCAN? NO; ATYPICAL LYMPHOCYTE FLAG 0 (0-99); FRAGMENT RBC FLAG 0 (0-99); HEMATOCRIT 26.6 % (40.0-51.0); LEFT SHIFT FLG 30 (0-99); LIPEMIA HEMOLYSIS FLAG 90 (0-99); MEAN CELL HEMOGLOBIN 35.2 pg (27.9-34.1); MEAN CELL HEMOGLOBIN CONCENTR. 33.8 g/dL (32.4-36.7); MEAN CELL VOLUME 103.9 fL (81.5-99.8); MEAN PLATELET VOLUME 11.5 fL (8.7-11.7); PLATELET CLUMPS FLAG 0 (0-99); PLATELET COUNT 109 10^3/uL (150-400); RED BLOOD CELL COUNT 2.56 10^6/uL (4.40-6.38); RED CELL DISTRIBUTION WIDTH 15.2 % (11.5-15.2)
[2016-09-02 05:56] LABS: ALBUMIN 2.6 g/dL (3.5-5.0); ANION GAP 8 mEq/L (8-16); CALCIUM 7.5 mg/dL (8.5-10.4); CARBON DIOXIDE 28 mEq/l (22-31); CHLORIDE 96 mEq/L (97-110); CREATININE 3.7 mg/dL (0.7-1.3); GLOMERULAR FILTRATION RATE 16; GLUCOSE 110 mg/dL (70-100); MAGNESIUM 1.9 mg/dL (1.6-2.3); POTASSIUM 4.7 mEq/L (3.5-5.2); SODIUM 132 mEq/L (134-144)
[2016-09-02] MEDS: ASPIRIN 81 MG CHEWABLE TAB PO SCH (08:22)
[2016-09-02] MEDS: OMEGA-3 FATTY ACIDS 1,000 MG CAP PO SCH (08:22)
[2016-09-02] MEDS: PRESERVISION AREDS2 FORMULA EYE VIT 1 EACH PO SCH (08:22)
[2016-09-02] MEDS: CLOPIDOGREL BISULFATE 75 MG TAB PO SCH (08:22)
[2016-09-02] MEDS: CHOLECALCIFEROL VIT D3 1,000 UNITS TAB PO SCH (08:22)
[2016-09-02] MEDS: VITAMIN B COMPLEX 1 EA CAP/TAB PO SCH (08:22)
[2016-09-02] MEDS: ACETAMINOPHEN 325 MG TAB PO PRN (08:22)
[2016-09-02] MEDS: PANTOPRAZOLE SODIUM 40 MG TAB PO SCH (08:22)
[2016-09-02] MEDS: TRIAMCINOLONE 0.1% 15GM OINT TP SCH (10:21)
[2016-09-02] MEDS ORDERED: ceFAZolin 2 GM in D5W 100 ML IV ONE (11:10)
[2016-09-02 11:33] VITALS: BP 86/42; PULSE 59; RESP 18; TEMP 98.1
--- NOTE | 2016-09-02 12:23 | GDS ---
[f rep st] DISCHARGE SUMMARY DIAGNOSES ON THIS ADMISSION: New and acute: 1. Acute bacteremia secondary to acute urinary tract infection, with blood culture positive for Esc herichia coli. 2. Acute sepsis, POA, with fever, leukocytosis with a left shift, and a normal venous lactate of 1. 2. Cultures were positive for E coli in the blood. 3. End-stage renal disease, on dialysis Sunday/Sunday/Sunday. 4. Hyperkalemia, resolved with dialysis. 5. Anemia of chronic disease, stable. Patient received Procrit during the hospitalization. 6. Acute encephalopathy secondary to acute sepsis bacteremia, now resolved. 7. Clostridium difficile positive in the stool without signs of active infection; probable coloniza tion. 8. Severe protein caloric malnutrition secondary to chronic disease and poor nutritional intake, re solving at the time of discharge. Chronic: 1. Coronary artery disease. 2. Prostate cancer remotely. 3. Chronic pain. 4. Chronic hypoxic respiratory failure on 2 L nasal prongs chronically. 5. Phimosis, followed by Urology. 6. Steal syndrome with his arteriovenous fistula in the left arm. CONSULTATION: With Nephrology and Infectious Disease. PROCEDURES: Dialysis was performed during this hospitalization x3. HOSPITAL COURSE: This is an 86-year-old gentleman who presented with weakness, elevated temperature to 100.8, and leukocytosis, and had positive blood cultures for E coli with findings positive from the urine. It was felt that he had acute sepsis and bacteremia secondary to an acute urinary tract infection. He was treated with IV antibiotics and persistently and significantly improved. He was hyperkalemic on admission and received urgent dialysis. Stool grew C difficile, which was felt to b e colonization, and he was treated with vancomycin 125 mg b.i.d. successfully. The gentleman also h as chronic respiratory failure and was followed on 2 L with nasal prongs. He had no signs of respir atory failure. We discussed the matter of home assistance and home care with the patient and , and they have de clined that at this time. I have discussed his outpatient antibiotics of Ancef with Nephrology, and these will be ordered post dialysis. He will complete his antibiotic course of treatment with Ancef with his dosage of Ancef on 09/04. DISCHARGE MEDICATIONS: New medications will be cefazolin 2 g post dialysis on 09/04 and vancomycin 125 mg p.o. b.i.d. x6 days. His continued medications are vitamin B complex, PreserVision, softgels, herbal supplementation, asp irin 81 mg daily, buprenorphine 1 each transdermally on Sunday, vitamin D3 2000 International Units daily, Plavix 75 mg daily, Proscar 5 mg b.i.d., flutamide 250 mg t.i.d., Neurontin 400 mg Sunday/Sun/Sunday and 300 mg p.o. h.s., midodrine 10 mg Sunday/Sunday/Sunday, nitroglycerin 0.4 mg jacobson blingual q.5 minutes p.r.n. chest pain, Goodman-3 fatty acids 1000 mg daily, OxyIR 5 mg b.i.d., Proton ix 40 mg daily, pravastatin 20 mg h.s., Requip 1 mg p.o. daily and Requip 1.5 mg p.o. q.h.s., teripa ratide 20 mcg subcu daily, and triamcinolone ointment 0.1% to apply twice daily. PLAN: Sourav will be returning home with his . They have declined home care and health assi stance. He will be dialyzing on Sunday/Sunday/Sunday as usual and receive 1 dose of cefazolin 2 g post dialysis on 09/04. He will continue his vancomycin orally at 125 mg b.i.d. for 6 more days. His PCP followup will be with Dr. Osvaldo Waddell and with Nephrology TIME: This discharge required 50 minutes, greater than 50% to breastfeeding peer counselor and coordinate the gentleman' s care. Case has been discussed with Infectious Disease and with Nephrology information technology assistant today. /[id number]/MODL
[2016-09-03] MEDS ORDERED: NON-FORMULARY NEW DRUG (Buprenorphine [Butrans 20 Mcg/Hr] 1 EACH) TD SCH (16:18)
[2016-09-04] MEDS ORDERED: ceFAZolin 2 GM/DEXTROSE 100 ML IV SCH (08:00)
== END 2016-09-02 13:01 | disposition home or self-care (01) | DRG 871 ==
LOC: CED 12:06 → CEDHOLD 13:48 → F3E 15:01
PROVIDERS: ADMIT Internal Medicine; ATTEND Internal Medicine
PROC: 5A1D60Z (ICD-10-PCS; principal; 2016-08-31)
DX: A41.51 Sepsis due to Escherichia coli [E. coli] (principal); N18.6 End stage renal disease; G93.49 Other encephalopathy; E43 Unspecified severe protein-calorie malnutrition; N39.0 Urinary tract infection, site not specified; J96.11 Chronic respiratory failure with hypoxia; T82.898A Other specified complication of vascular prosthetic devices, implants and grafts, initial encounter; E87.5 Hyperkalemia; D63.1 Anemia in chronic kidney disease; B96.89 Other specified bacterial agents as the cause of diseases classified elsewhere; I25.10 Atherosclerotic heart disease of native coronary artery without angina pectoris; Z85.46 Personal history of malignant neoplasm of prostate; G89.29 Other chronic pain; N47.1 Phimosis; Z99.2 Dependence on renal dialysis; G25.81 Restless legs syndrome; M81.0 Age-related osteoporosis without current pathological fracture; Z66 Do not resuscitate
CPT/HCPCS: 71020-PO; 80048-PO; 83605-PO; 85025-PO; 97116-GP; 97162-GP; 97166-GO; 97530-GP; G8978-GP-CM; G8979-GP-CJ; G8987-GO-CM; G8988-GO-CK; J0690; J0696; J0885; J2405

== ENCOUNTER 2017-03-22 11:35 | Emergency (ER) | payer OTHER ==
[2017-03-22 11:54] VITALS: TEMP 97.3
[2017-03-22] MEDS ORDERED: OXYCODONE/APAP 5/325 TAB PO ONE (12:06)
--- NOTE | 2017-03-22 13:10 | EDPHY ---
H & P Time Seen by Provider: 03/22/17 11:57 HPI/ROS: This patient slipped in his bathroom last night at 6:00 p.m. After in the shower on the bath mat landing against the wall and sustaining a left shoulder injury - severe pain and swelling to the proximal humerus since the fall. His drove him here today by private vehicle for evaluation. The shoulder pain worsens with movement. He took an alleve this am for pain without sig. improvement. He initially denied any other injuries, but when he laid supine for a radiograph, he noted onset of LUQ abd. pain 7/10 in intensity. ROS: Constitutional: No fevers recently, felt in his usual state of health prior to fall. No other constitutional symptoms. HEENT: No facial injuries. Neuro: denies CHI, numbness or tingling. PULM: No chest wall pain or shortness of breath Cardiovascular: His notices a prominence of small veins to the left shoulder since the injury. No chest pain heart palpitations or lightheadedness. GI: As per HPI. No nausea or vomiting. : No hematuria. He has a dialysis shunt in the left arm. Integumentary: No lacerations abrasions from the fall Musculoskeletal: He denies any midline neck or back pain 10 point ROS is otherwise negative. Smoking Status: Never smoked Physical Exam: Blood pressures in low side but he states this is baseline for him-high 90s systolic. Other vital signs are normal General Appearance: Pleasant elderly male, Alert, no distress. Eyes: Pupils equal and round no pallor or injection. ENT, Mouth: Mucous membranes moist. Respiratory: There are no retractions, lungs are clear to auscultation. Cardiovascular: Regular rate and rhythm, no murmur, lópez or rub. 2+ symmetric radial pulses bilat. upper ex. Palpable thrill in left upper arm consistent with dialysis access area Gastrointestinal: Moderate left upper quadrant tenderness. Clean dry intact midline surgical scar colostomy right mid belly clean dry intact Neurological: GCS 15 with no focal deficits. Neurovascularly intact in the affected extremity Skin: Warm and dry, no rashes. Musculoskeletal: Neck is supple nontender. Back no midline tenderness Left shoulder: Patient has swelling to the proximal humerus with limited range of motion due to pain and associated moderate tenderness the affected area. No clavicle swelling or tenderness. No posterior shoulder tenderness. Left elbow: He also has mild tenderness near the elbow but no significant elbow swelling. He maintains full range of motion at the elbow. Extremities are otherwise atraumatic. Psychiatric: Mood and affect are normal. DIFFERENTIAL DIAGNOSIS: After history and physical exam differential diagnosis was considered for Proximal humerus fx, shoulder dislocation, sprain, elbow contusion, elbow fx. splenic injury, lower rib fx, abd. wall contusion or abd. wall strain. Constitutional: Initial Vital Signs Temperature (C) 36.3 C 03/22/17 11:49 Heart Rate 59 L 03/22/17 11:49 Respiratory Rate 16 03/22/17 11:49 Blood Pressure 104/43 L 03/22/17 11:49 O2 Sat (%) 99 03/22/17 11:49 O2 Delivery Mode Nasal Cannula Allergies/Adverse Reactions: ciprofloxacin [From Cipro] Allergy (Intermediate, Verified 03/22/17 11:49) HIGH CREATININE Penicillins Allergy (Intermediate, Verified 03/22/17 11:49) SWELLING SOLES OF FEET Home Medications: Medication Instructions Recorded Vitamin B Complex [Vitamin B 1 each PO DAILY 01/15/12 Complex (OTC)] Herbals/Supplements -Info Only 1 ea PO DAILY 12/17/14 Vit A/Vit C/Vit E/Zinc/Copper 1 each PO BID 12/17/14 [Preservision Areds Softgel] Aspirin [Aspirin 81mg (*)] 81 mg PO DAILY 08/30/16 Buprenorphine [Butrans 20 mcg/hr] 1 each TD FRY 08/30/16 Cholecalciferol Vit D3 [Vitamin D3 2,000 units PO DAILY 08/30/16 (*)] Clopidogrel Bisulfate [Plavix (*)] 75 mg PO DAILY 08/30/16 Finasteride [Proscar 5 MG (*)] 5 mg PO BID@08/30/16 Flutamide 250 mg PO TID@03,,08/30/16 Gabapentin [Neurontin 100 MG (*)] 300 mg PO HS 08/30/16 Gabapentin [Neurontin 100 MG (*)] 400 mg PO MOWEFR@08/30/16 Midodrine HCl 10 mg PO MOWEFR 08/30/16 Nitroglycerin [Nitrostat 0.4 mg 0.4 mg SL Q5M PRN 08/30/16 (*)] [place]-3 Fatty Acids [Fish Oil 1000 1,000 mg PO DAILY 08/30/16 mg (*)] Pantoprazole Sodium [Protonix 40mg 40 mg PO DAILY 08/30/16 (*)] Ropinirole HCl [Requip 0.5mg] 1 mg PO DAILY@02 08/30/16 Ropinirole HCl [Requip 0.5mg] 1.5 mg PO HS 08/30/16 Triamcinolone 0.1% Ointment 1 ree TP BID 08/30/16 oxyCODONE IR [Oxycodone Ir (*)] 5 mg PO BID@08/30/16 Metoprolol Succinate 12.5 mg BID 03/22/17 MDM/Departure - MDM Imaging Results: Imaging Impressions Shoulder X-Ray 03/22/17 11:51 Impression: Mildly displaced and angulated transverse fracture of the proximal metadiaphysis of the left humerus. Elbow X-Ray 03/22/17 12:03 Impression: No evidence for acute osseous abnormality in the left elbow. Abdomen/Pelvis CT 03/22/17 12:57 Impression: 1. No evidence of abdominal or pelvic hemorrhage. 2. No evidence of hepatic or splenic laceration or retroperitoneal hemorrhage. 3. Old T11 and T12 compression fractures with kyphoplasty changes. 4. 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 5. Diagnostic left nephrolithiasis with bilateral severe renal atrophy. 6. Atherosclerotic aorta without aneurysm. Attention: This CT examination is specifically designed to evaluate patients who are clinically suspected of having acute obstructive uropathy. This examination does not use radiographic contrast, and as such, provides only a limited evaluation of the abdomen, pelvis and retroperitoneum. If there is further clinical suspicion for pathological conditions other than obstructive uropathy, a complete CT evaluation of the abdomen and pelvis utilizing intravenous, oral, and rectal contrast should be considered. Findings and recommendations discussed with Emergency Department physician, Dr. Krishna Simmons at 1330 hours on March 22, 2017. Final report concurs with initial preliminary interpretation. Shoulder x-rays: Transverse fracture proximal humeral diaphysis with angulation approximately 20 degrees by my interpretation. L x-rays: Normal by my interpretation Imaging: Discussed imaging studies w/ riprap placing supervisor Radiologist, I viewed and interpreted images myself (Plain x-rays. I discussed the CT scan with radiologist also reviewed these films myself.) Medications Given: Discontinued Medications Oxycodone/Acetaminophen (Percocet 5/325) 1 tab PO EDNOW ONE Stop: 03/22/17 12:07 Last Admin: 03/22/17 12:20 Dose: 1 tab ED Course/Re-evaluation: Percocet p.o. For analgesia. Patient is placed in a caught a m[place]o splint after conversation with Dr. Rico-orthopedics with the orthopedic physician on-call. Patient will follow up with Dr. Rico on Sunday. Given patient's onset of left upper quadrant pain and tenderness proceed with imaging to evaluate for potential splenic injury. I did consider a bedside ultrasound. However, the patient holds his arm directly over the left upper quadrant with position of comfort I felt that I would cause some undue pain by maneuvering his arm to accomplish a fast exam. Chose to do a plain CT without contrast given his history of renal failure. Patient's CT abdomen/pelvis reveals no evidence of acute traumatic pathology. SPLINT: Patient is placed in a coaptation Ortho Glass splint to his left humerus by myself and our tech. He is in place in a sling. Patient remains neurovascularly intact post splint application. I counseled the patient regarding his fracture. Patient ambulates with a cane. He maintains full function of his dominant arm. He his feel confident that he will be able to manage at home with his current injury. He understands the need to return emergency department should he developed unbearable pain despite the treatment plan, onset of new symptoms or other concerns. Otherwise he will follow up on Sunday with Dr. Rico. For analgesia he will continue his current oxycodone that he takes for his back pain. Understands he can also add Tylenol to this. - Depart Disposition: Home, Routine, Self-Care Clinical Impression: Proximal humerus fracture Qualifiers: Encounter type: initial encounter Fracture type: closed Fracture morphology: other fracture Fracture alignment: displaced Laterality: left Qualified Code(s) : S42.292A - Other displaced fracture of upper end of left humerus, initial encounter for closed fracture Abdominal wall strain Qualifiers: Encounter type: initial encounter Qualified Code(s): S39.011A - Strain of muscle, fascia and tendon of abdomen, initial encounter Condition: Good Instructions: Proximal Humerus Fracture (ED) Additional Instructions: Diagnoses: 1. Left proximal humerus fracture 2. Abdominal wall strain Plan: Ice 20 min at a time 3 times a day for the next few days to affected shoulder With splint at all times. Sling while up and about in addition. Tylenol and UR oxycodone for pain control as needed Call Dr. Rico today to arrange follow-up appointment for Sunday. Return if he developed unbearable pain despite treatment plan, numbness to the affected arm or other concerns. Referrals: MICHAEL TINOCO [Primary Care Provider] - As per Instructions Krishna Rico MD [Medical Doctor] - As per Instructions
[2017-03-22 14:32] VITALS: BP 109/45; PULSE 57; RESP 18; O2SAT 96
== END 2017-03-22 14:30 | disposition home or self-care (01) ==
LOC: CED 11:35
DX: S42.292A Other displaced fracture of upper end of left humerus, initial encounter for closed fracture (principal); S39.011A Strain of muscle, fascia and tendon of abdomen, initial encounter; Z79.82 Long term (current) use of aspirin; W01.0XXA Fall on same level from slipping, tripping and stumbling without subsequent striking against object, initial encounter; Y92.012 Bathroom of single-family (private) house as the place of occurrence of the external cause
CPT/HCPCS: 73030-PO; 73080-PO; 74176-PO

== ENCOUNTER 2017-03-24 11:19 | Emergency (ER) | payer OTHER ==
[2017-03-24 11:41] VITALS: O2SAT 99
[2017-03-24] MEDS ORDERED: OXYCODONE/APAP 5/325 TAB PO ONE (11:55)
--- NOTE | 2017-03-24 14:17 | EDPHY ---
H & P Stated Complaint: left arm broken pt still in pain Time Seen by Provider: 03/24/17 11:44 HPI/ROS: CHIEF COMPLAINT: Left arm pain HISTORY OF PRESENT ILLNESS: This is an 86-year-old male who was seen 2 days ago and diagnosed with a left humeral neck fracture. He was placed in an ortho glass splint and sling. He returns today with persistent pain. He takes oxycodone 5 mg twice daily for chronic back pain. He has taken some additional Tylenol without relief. He denies new numbness or weakness. He is scheduled to see the orthopedist in 2 days. He has end-stage renal disease and is dialyzed thrice weekly. He missed his dialysis on Sunday. He spoke with the dialysis staff on Sunday and they are expecting to see him on Sunday, day after tomorrow. REVIEW OF SYSTEMS: A ten point review of systems was performed and is negative with the exception of the items mentioned in the HPI. Past medical history: End-stage renal disease on dialysis Past surgical history: Kyphoplasty Social history: He lives with his . General Appearance: Alert. Vital signs reviewed. Eyes: Pupils equal and round, no conjunctival injection, no discharge. Anicteric. Neck: Nontender over the cervical spine in the midline. Respiratory: Lungs are clear to auscultation; no wheezes, rales, or rhonchi. Cardiovascular: Regular rate and rhythm; no murmur, rub, or gallop. Gastrointestinal: Abdomen is soft and nontender. Skin: Warm and dry, no rashes on exposed skin. Extremities: Bruising of left upper arm. He holds the arm flexed at the elbow. There is some swelling of the left hand. Pulses: 2+ radial pulse on the left. There is a dialysis fistula in the left arm with a palpable thrill. Neurological: Alert and oriented. Psychiatric: Normal affect. - Personal History Current Tetanus/Diphtheria Vaccine: Yes Current Tetanus Diphtheria and Acellular Pertussis (TDAP): Yes Tetanus Vaccine Date: 2012 - Medical/Surgical History Hx Asthma: No Hx Chronic Respiratory Disease: Yes Hx Diabetes: No Hx Cardiac Disease: Yes Hx Renal Disease: Yes Hx Cirrhosis: No Hx Alcoholism: No Hx HIV/AIDS: No Hx Splenectomy or Spleen Trauma: No Other PMH: Stage 5 Kidney failure,several compression fractures. Dialysis MWF. Restless leg syndrome RLS. Prostatectomy. colectomy with illeostomy, cardiac stents x 2. Appy - Social History Smoking Status: Never smoked Constitutional: Initial Vital Signs Temperature (C) 36.4 C 03/24/17 11:35 Heart Rate 69 03/24/17 11:35 Respiratory Rate 20 03/24/17 11:35 Blood Pressure 113/46 L 03/24/17 11:35 O2 Sat (%) 99 03/24/17 11:35 O2 Delivery Mode Nasal Cannula O2 (L/minute) 2 Allergies/Adverse Reactions: ciprofloxacin [From Cipro] Allergy (Intermediate, Verified 03/24/17 11:34) HIGH CREATININE Penicillins Allergy (Intermediate, Verified 03/24/17 11:34) SWELLING SOLES OF FEET Home Medications: Medication Instructions Recorded Vitamin B Complex [Vitamin B 1 each PO DAILY 01/15/12 Complex (OTC)] Herbals/Supplements -Info Only 1 ea PO DAILY 12/17/14 Vit A/Vit C/Vit E/Zinc/Copper 1 each PO BID 12/17/14 [Preservision Areds Softgel] Aspirin [Aspirin 81mg (*)] 81 mg PO DAILY 08/30/16 Buprenorphine [Butrans 20 mcg/hr] 1 each TD FRY 08/30/16 Cholecalciferol Vit D3 [Vitamin D3 2,000 units PO DAILY 08/30/16 (*)] Clopidogrel Bisulfate [Plavix (*)] 75 mg PO DAILY 08/30/16 Finasteride [Proscar 5 MG (*)] 5 mg PO BID@,23 08/30/16 Flutamide 250 mg PO TID@03,11,08/30/16 Gabapentin [Neurontin 100 MG (*)] 300 mg PO HS 08/30/16 Gabapentin [Neurontin 100 MG (*)] 400 mg PO MOWEFR@11 08/30/16 Midodrine HCl 10 mg PO MOWEFR 08/30/16 Nitroglycerin [Nitrostat 0.4 mg 0.4 mg SL Q5M PRN 08/30/16 (*)] [place]-3 Fatty Acids [Fish Oil 1000 1,000 mg PO DAILY 08/30/16 mg (*)] Pantoprazole Sodium [Protonix 40mg 40 mg PO DAILY 08/30/16 (*)] Ropinirole HCl [Requip 0.5mg] 1 mg PO DAILY@02 08/30/16 Ropinirole HCl [Requip 0.5mg] 1.5 mg PO HS 08/30/16 Triamcinolone 0.1% Ointment 1 ree TP BID 08/30/16 oxyCODONE IR [Oxycodone Ir (*)] 5 mg PO BID@11,23 08/30/16 Metoprolol Succinate 12.5 mg BID 03/22/17 oxyCODONE IR [Oxycodone Ir (*)] 5 mg PO TID PRN #10 tab 03/24/17 Medical Decision Making - Diagnostics Imaging: I viewed and interpreted images myself ED Course/Re-evaluation: Persistent pain secondary to left proximal humerus fracture. The ortho glass splint was removed. He was given 1 Percocet p.o.. He takes OxyContin IR 5 mg twice daily. He was given a prescription for a few more of these, as he has been taking an additional dose since he fractured his arm. He was placed in a sling, which felt more comfortable to him. I notified the on-call orthopedist that the ortho glass had been removed and replaced with a simple sling. On review of the initial record it is unclear to me what kind of splinting was recommended. Typically proximal humerus fractures can be treated with sling. An x-ray was obtained after the ortho glass was removed to reassess the position of the fracture fragments. There is some swelling of his left hand but no unexpected swelling of the arm itself and no tenseness. I do not suspect compartment syndrome. He will keep his appointment with Orthopedics day after tomorrow. Danger signs were reviewed with him. He will also be dialyzed day after tomorrow. Differential Diagnosis: Considered a differential diagnosis that includes but is not limited to pain secondary to fracture, movement of fracture fragments/dislocation, noncompliance with splint or sling, compartment syndrome. - Data Points Medications Given: Discontinued Medications Oxycodone/Acetaminophen (Percocet 5/325) 1 tab PO EDNOW ONE Stop: 03/24/17 11:56 Last Admin: 03/24/17 12:04 Dose: 1 tab Departure - Departure Disposition: Home, Routine, Self-Care Clinical Impression: Closed left humeral fracture Qualifiers: Encounter type: subsequent encounter Humerus Location: proximal Fracture morphology: unspecified fracture morphology Fracture healing: with routine healing Qualified Code(s): S42.202D - Unspecified fracture of upper end of left humerus, subsequent encounter for fracture with routine healing Condition: Good Instructions: Proximal Humerus Fracture (ED) Additional Instructions: Wear the sling. Keep your appointment with Dr. Rico day after tomorrow. It is important that you get your dialysis on Sunday. They can open the sling and access your dialysis fistula. Usual oxycodone as prescribed and as needed for pain. I have written [facility] prescription for 10 more additional oxycodone 5 mg pills. If needed, you can take 1 extra pill daily; which means that you can take 3 pills instead of two. Referrals: MICHAEL TINOCO [Primary Care Provider] - As per Instructions Krishna Rico MD [Medical Doctor] - As per Instructions Prescriptions: oxyCODONE IR [Oxycodone Ir (*)] 5 mg PO TID PRN #10 tab PRN Reason: severe pain
[2017-03-24 14:37] VITALS: RESP 18
[2017-03-24 14:39] VITALS: BP 122/68; PULSE 68; TEMP 97.9
== END 2017-03-24 14:58 | disposition home or self-care (01) ==
LOC: CED 11:19
DX: S42.202D Unspecified fracture of upper end of left humerus, subsequent encounter for fracture with routine healing (principal); Z79.82 Long term (current) use of aspirin; X58.XXXD Exposure to other specified factors, subsequent encounter
CPT/HCPCS: 73060-PO

== ENCOUNTER → 2017-08-29 | Outpatient (CLI) | payer OTHER | LOC: BRMIMAGING 13:16 | PROVIDERS: ATTEND Internal Medicine Nephrology | DX: R06.02 Shortness of breath (principal) | CPT/HCPCS: 71046-PO ==